=== PATIENT | female | born 1995 | race Caucasian/White ===

== ENCOUNTER 2018-06-06 20:44 | Emergency (ER) | payer BC ==
[2018-06-06] MEDS ORDERED: NS 1,000 ML IV ONE (21:01)
[2018-06-06 21:32] LABS: PLATELET COUNT 298 10^3/uL (150-400)
[2018-06-06] MEDS ORDERED: KETOROLAC 15 MG/1 ML SDV IVP ONE (22:09)
--- NOTE | 2018-06-06 22:28 | EDPHY ---
H & P Stated Complaint: frequent/ painful urination Time Seen by Provider: 06/06/18 21:00 HPI/ROS: Chief complaint: Urinary tract infection History of present illness: This is a 22-year-old female who presents to the emergency department for evaluation of urinary tract infection. Patient has a remote history of chronic urinary tract infections as a child although it has been a long time since she has had 1. She states over the last week she has developed typical symptoms of pain with urination, increased frequency of urination, trouble starting and stopping. She has attempted to hydrate interested but symptoms have progressed over the last day she started to get mild flank pain on both sides. She has had associated tactile fevers and chills. She denies alleviating factors. She denies other associated signs or symptoms including no nausea, vomiting, no abdominal pain, no abnormal vaginal discharge or discomfort. Review of systems: A 10 point review of systems was obtained and other than described above was negative - Personal History LMP (Females 10-55): 15-21 Days Ago Current Tetanus Diphtheria and Acellular Pertussis (TDAP): Yes - Medical/Surgical History Hx Asthma: No Hx Chronic Respiratory Disease: No Hx Diabetes: No Hx Cardiac Disease: No Hx Renal Disease: No Hx Cirrhosis: No Hx Alcoholism: No Hx HIV/AIDS: No Hx Splenectomy or Spleen Trauma: No - Social History Smoking Status: Never smoked - Physical Exam Exam: General Appearance: Alert, no distress. Eyes: Pupils equal and round no pallor or injection. ENT, Mouth: Mucous membranes moist. Respiratory: There are no retractions, lungs are clear to auscultation. Cardiovascular: Regular rate and rhythm. Gastrointestinal: Abdomen is soft and non tender, no masses, bowel sounds normal. Genitourinary: No CVA tenderness Neurological: Alert and oriented x4. Strength and sensation intact and symmetrical. Skin: Warm and dry, no rashes. Musculoskeletal: Neck is supple non tender. Extremities are symmetrical, full range of motion. Psychiatric: Patient is oriented X 3, there is no agitation. Constitutional: Initial Vital Signs Temperature (C) 36.8 C 06/06/18 20:47 Heart Rate 110 H 06/06/18 20:47 Respiratory Rate 20 06/06/18 20:47 Blood Pressure 144/90 H 06/06/18 20:47 O2 Sat (%) 97 06/06/18 20:47 O2 Delivery Mode Room Air Allergies/Adverse Reactions: No Known Allergies Allergy (Unverified 06/06/18 20:46) Home Medications: Medication Instructions Recorded Cephalexin [Keflex] 500 mg PO QID 7 Days cap 06/06/18 Pcp 06/06/18 Medical Decision Making ED Course/Re-evaluation: Patient discussed with my secondary supervising physician Dr. Joseph Hennessy. Patient presents concerned she has a urinary tract infection. She is nontoxic. I believe history, physical exam and lab studies are consistent with a urinary tract infection. She has been IV hydrated. Pain has been controlled with Toradol. She has been given a dose of Rocephin. I will discharge her home on oral Keflex. A urine culture is pending. Home care is discussed including hydration. She is to follow up with a primary care doctor next week for recheck. Return precautions to the emergency room were discussed. Patient voiced understanding and agreement with plan. Differential Diagnosis: Included but not limited to cystitis, pyelonephritis, pelvic infections, nephrolithiasis, strict of uropathy, urosepsis - Data Points Laboratory Results: Laboratory Results 06/06/18 21:20 06/06/18 21:20 06/06/18 06/06/18 06/06/18 21:20 21:20 21:20 WBC 8.00 10^3/uL 10^3/uL (3.80-9.50) RBC 4.79 10^6/uL 10^6/uL (4.18-5.33) Hgb 12.0 g/dL L g/dL (12.6-16.3) Hct 37.1 % L % (38.0-47.0) MCV 77.5 fL L fL (81.5-99.8) MCH 25.1 pg L pg (27.9-34.1) MCHC 32.3 g/dL L g/dL (32.4-36.7) RDW 15.9 % H % (11.5-15.2) Plt Count 298 10^3/uL 10^3/uL (150-400) MPV 10.0 fL fL (8.7-11.7) Neut % (Auto) 68.0 % % (39.3-74.2) Lymph % (Auto) 21.6 % % (15.0-45.0) [place] % (Auto) 6.0 % % (4.5-13.0) Eos % (Auto) 3.6 % % (0.6-7.6) Baso % (Auto) 0.5 % % (0.3-1.7) Nucleat RBC Rel Count 0.0 % % (0.0-0.2) Absolute Neuts (auto) 5.44 10^3/uL 10^3/uL (1.70-6.50) Absolute Lymphs (auto) 1.73 10^3/uL 10^3/uL (1.00-3.00) Absolute Monos (auto) 0.48 10^3/uL 10^3/uL (0.30-0.80) Absolute Eos (auto) 0.29 10^3/uL 10^3/uL (0.03-0.40) Absolute Basos (auto) 0.04 10^3/uL 10^3/uL (0.02-0.10) Absolute Nucleated RBC 0.00 10^3/uL 10^3/uL (0-0.01) Immature Gran % 0.3 % % (0.0-1.1) Immature Gran # 0.02 10^3/uL 10^3/uL (0.00-0.10) Sodium 137 mEq/L mEq/L (135-145) Potassium 3.6 mEq/L mEq/L (3.3-5.0) Chloride 108 mEq/L mEq/L (97-110) Carbon Dioxide 21 mEq/l L mEq/l (22-31) Anion Gap 8 mEq/L mEq/L (8-16) BUN 17 mg/dL mg/dL (7-23) Creatinine 0.6 mg/dL mg/dL (0.6-1.0) Estimated GFR > 60 Glucose 95 mg/dL mg/dL (70-100) Calcium 9.0 mg/dL mg/dL (8.5-10.4) Beta HCG, Qual NEGATIVE Urine Color Urine Appearance Urine pH Ur Specific [place] Urine Protein Urine Ketones Urine Blood Urine Nitrate Urine Bilirubin Urine Urobilinogen Ur Leukocyte Esterase Urine RBC Urine WBC Ur Epithelial Cells Urine Bacteria Urine Mucus Urine Glucose 06/06/18 21:10 WBC RBC Hgb Hct MCV MCH MCHC RDW Plt Count MPV Neut % (Auto) Lymph % (Auto) [place] % (Auto) Eos % (Auto) Baso % (Auto) Nucleat RBC Rel Count Absolute Neuts (auto) Absolute Lymphs (auto) Absolute Monos (auto) Absolute Eos (auto) Absolute Basos (auto) Absolute Nucleated RBC Immature Gran % Immature Gran # Sodium Potassium Chloride Carbon Dioxide Anion Gap BUN Creatinine Estimated GFR Glucose Calcium Beta HCG, Qual Urine Color YELLOW Urine Appearance HAZY Urine pH 6.0 (5.0-7.5) Ur Specific [place] 1.013 (1.002-1.030) Urine Protein NEGATIVE (NEGATIVE) Urine Ketones NEGATIVE (NEGATIVE) Urine Blood NEGATIVE (NEGATIVE) Urine Nitrate NEGATIVE (NEGATIVE) Urine Bilirubin NEGATIVE (NEGATIVE) Urine Urobilinogen NEGATIVE EU EU (0.2-1.0) Ur Leukocyte Esterase 2+ H (NEGATIVE) Urine RBC 5-10 /hpf H /hpf (0-3) Urine WBC 15-25 /hpf H /hpf (0-3) Ur Epithelial Cells 2+ /lpf H /lpf (NONE-1+) Urine Bacteria 4+ /hpf H /hpf (NONE SEEN) Urine Mucus TRACE /lpf /lpf (NONE-1+) Urine Glucose NEGATIVE (NEGATIVE) Medications Given: Discontinued Medications Cephalexin (Keflex 500 Mg Prepack#4) 1 btl TAKEHOME EDNOW ONE PRN Reason: Protocol Stop: 06/06/18 22:34 Last Admin: 06/06/18 22:42 Dose: 1 btl Sodium Chloride (Ns) 1,000 mls @ 0 mls/hr IV EDNOW ONE; Wide Open PRN Reason: Protocol Stop: 06/06/18 21:02 Last Admin: 06/06/18 21:17 Dose: 1,000 mls Ceftriaxone Sodium/Dextrose (Rocephin 1 Gm (Premix)) 50 mls @ 100 mls/hr IV EDNOW ONE PRN Reason: Protocol Stop: 06/06/18 22:20 Last Admin: 06/06/18 21:58 Dose: 50 mls Ketorolac Tromethamine (Toradol) 15 mg IVP EDNOW ONE Stop: 06/06/18 22:10 Last Admin: 06/06/18 22:25 Dose: 15 mg Departure - Departure Disposition: Home, Routine, Self-Care Clinical Impression: Acute pyelonephritis Condition: Good Instructions: Cephalexin (By mouth), Urinary Tract Infection in Women (ED), Anemia (ED) Additional Instructions: Follow-up with a primary care doctor next week for recheck and to follow up on your anemia Drink plenty of fluids to stay hydrated Take all antibiotics as prescribed until finished even feeling better If symptoms worsen or new symptoms develop return to the emergency room for recheck Referrals: NONE *PRIMARY CARE P,. [Primary Care Provider] - As per Instructions [facility],. [Clinic] - As per Instructions Prescriptions: Cephalexin [Keflex] 500 mg PO QID 7 Days cap
[2018-06-06] MEDS ORDERED: CEPHALEXIN 500MG PREPACK#4 BTL TAKEHOME ONE (22:33)
[2018-06-06 22:58] VITALS: BP 126/72
== END 2018-06-06 22:56 | disposition home or self-care (01) ==
DX: N39.0 Urinary tract infection, site not specified (principal); Z87.440 Personal history of urinary (tract) infections; E86.9 Volume depletion, unspecified
CPT/HCPCS: 96365; J0696; J1885